=== PATIENT | male | born 1970 | race Caucasian/White ===

== ENCOUNTER → 2023-12-10 | Day surgery (SDC) | payer OTHER ==
[~2023-12-10] MED LIST: AMLODIPINE BESY10 MG PO; BALANCED SALT SOLN (OPTH) 15 ML BTL IO ONE; BUPIVACAINE HC 0.75% PF 10ML VIAL INJ ONE; CHLORTHALIDONE25 MG PO; COREG12.5 MG PO; CYCLOBENZAPRINE10 MG PO; CYCLOPENTOLATE HCL 2% OPTH SOLN 2 ML BTL OP ONE; EPINEPHRINE HCL 1:1000 1ML 1 MG/ML AMP ONE; FLOMAX0.4 MG PO; GATIFLOXACIN(OPTH) 5 ML LIQD ONE; LIDOCAINE HCL-PF 4% 40 MG/1 ML 5ML AMP ONE; LIPITOR10 MG PO; LOSARTAN POTAS100 MG PO; METFORMIN HCL500 MG PO; MIDAZOLAM HCL 2 MG/2 ML VIAL ONE; OZEMPIC1 MG/0.71 SC; PHENYLEPHRINE HCL 2 ML DROPS ONE; PILOCARPINE HCL(OPTH) 15 ML LIQD ONE; POVIDONE IODINE 5% (OPTH) 30 ML BTL ONE; PROPOFOL IV EMULSION 10 MG/ML 20 ML VIAL ONE; TETRACAINE HCL 0.5% OPTH SOLN 4 ML BTL ONE
[2023-12-10 11:19] LABS: HEMATOCRIT 52.8 % (38.2-49.6)
[2023-12-10 11:35] LABS: ANION GAP 16.3 mmol/L (8-16); CALCIUM 9.6 mg/dL (8.4-10.2); CREATININE, SERUM 0.97 mg/dL (0.72-1.25)
[2023-12-10 11:36] LABS: POTASSIUM 3.3 mmol/L (3.5-5.1)
[2023-12-10] MEDS: LACTATED RINGER'S 1,000 ML ONE (12:24)
[2023-12-10 13:45] VITALS: BP 131/95; PULSE 62; RESP 17; TEMP 97.4; O2SAT 98
== END | disposition home or self-care (01) ==
LOC: EDSEX 10-01 12:00 → OR 09:15
PROVIDERS: ATTEND Ophthalmology
DX: H25.12 Age-related nuclear cataract, left eye (principal); G47.33 Obstructive sleep apnea (adult) (pediatric); E11.9 Type 2 diabetes mellitus without complications; I10 Essential (primary) hypertension; E78.5 Hyperlipidemia, unspecified; M54.50 Low back pain, unspecified; Z79.84 Long term (current) use of oral hypoglycemic drugs; Z79.85 Long-term (current) use of injectable non-insulin antidiabetic drugs; Z79.899 Other long term (current) drug therapy
CPT/HCPCS: 36415; 66984; 80048; 85014; 85018; 93005; J0171; J2250; J2704; J7121; V2632

== ENCOUNTER → 2024-03-17 | Day surgery (SDC) | payer OTHER ==
[~2024-03-17] MED LIST changes: -BALANCED SALT SOLN (OPTH) 15 ML BTL IO ONE; -BUPIVACAINE HC 0.75% PF 10ML VIAL INJ ONE; -CYCLOPENTOLATE HCL 2% OPTH SOLN 2 ML BTL OP ONE; -EPINEPHRINE HCL 1:1000 1ML 1 MG/ML AMP ONE; +FENTANYL CITRATE/PF 100MCG/2 ML INJ ONE; -GATIFLOXACIN(OPTH) 5 ML LIQD ONE; +LIDOCAINE HCL 2% LOCAL INJ 5 ML SDV VIAL INJ ONE; -LIDOCAINE HCL-PF 4% 40 MG/1 ML 5ML AMP ONE; -PHENYLEPHRINE HCL 2 ML DROPS ONE; -PILOCARPINE HCL(OPTH) 15 ML LIQD ONE; -POVIDONE IODINE 5% (OPTH) 30 ML BTL ONE; -TETRACAINE HCL 0.5% OPTH SOLN 4 ML BTL ONE
[2024-03-17] MEDS: LACTATED RINGER'S 1,000 ML ONE (08:53)
[2024-03-17] MEDS: PHENYLEPHRINE HCL 2 ML DROPS ONE (08:53)
[2024-03-17] MEDS: TETRACAINE HCL 0.5% OPTH SOLN 4 ML BTL ONE (08:53)
[2024-03-17] MEDS: GATIFLOXACIN(OPTH) 5 ML LIQD ONE (08:54)
[2024-03-17] MEDS: CYCLOPENTOLATE HCL 2% OPTH SOLN 2 ML BTL OP ONE (08:54)
[2024-03-17 11:35] VITALS: TEMP 97.8
[2024-03-17 11:50] VITALS: BP 129/88; PULSE 60; RESP 20; O2SAT 96
== END | disposition home or self-care (01) ==
LOC: OR 08:01
PROVIDERS: ATTEND Ophthalmology
DX: H25.11 Age-related nuclear cataract, right eye (principal); G47.33 Obstructive sleep apnea (adult) (pediatric); E11.9 Type 2 diabetes mellitus without complications; I10 Essential (primary) hypertension; E78.5 Hyperlipidemia, unspecified; E66.01 Morbid (severe) obesity due to excess calories; G89.29 Other chronic pain; Z72.0 Tobacco use; Z01.810 Encounter for preprocedural cardiovascular examination; Z79.84 Long term (current) use of oral hypoglycemic drugs; Z79.899 Other long term (current) drug therapy; Z68.43 Body mass index [BMI] 50.0-59.9, adult
CPT/HCPCS: 66984; 93005; J2003; J2250; J2704; J3010; J7121; V2632